=== PATIENT | female | born 1950 | race Caucasian/White ===

== ENCOUNTER 2018-10-04 12:09 | Day surgery (SDC) | payer OTHER ==
[~2018-10-04] VITALS: Ht 172.7 cm; Wt 64.4 kg
[~2018-10-04 12:09] MED LIST: ATENOLOL25 MG PO; FLUCELVAX60 MCG/0.4 IM; LIPITOR20 MG PO; LOTENSIN20 MG PO
--- NOTE | 2018-10-04 13:48 | NUR ---
10/04/18 1348 Hilda Mcmillan 1342- PT ARRIVES TO PACU. AROUSABLE TO VOICE. REPORTS NO PAIN OR NAUSEA. FALLS INSTANTLY BACK TO SLEEP. RESP EVEN AND UNLABORED. OXYGEN SAT HIGH 90'S TO 100% ON 3L VIA NC. 1344- OXYGEN TURNED OFF. OXYGEN SAT HIGH 90'S ON RA. 1346- PT ENCOURAGED TO TAKE DEEP BREATHS. PT IS ABLE TO PERFORM THIS TASK. OXYGEN SAT REMAINS IN THE HIGH 90'S ON RA.
--- NOTE | 2018-10-06 12:09 | OR ---
[facility] [address], [place] [address] Signed DATE OF OPERATION: 10/04/2018 SURGEON: Peg Oden MD PREOPERATIVE DIAGNOSIS: Colon screening. POSTOPERATIVE DIAGNOSIS: Cecal polyp (excised). PROCEDURE: Total colonoscopy to cecum with cold snare polypectomy x1. ANESTHESIA: Intravenous sedation with fentanyl 100 mcg, Versed 4 mg. INDICATION: This 68-year-old white woman is a patient Dr. Curtis Pierre, and underwent colonoscopy in 2007 by me, which was normal. She is symptom-free and has no family history of colon cancer. She is here for surveillance colonoscopy for screening, understands the risks of bleeding, infection, and perforation. FINDINGS: The prep was excellent. Complete colonoscopy was undertaken of the cecum without question. There was a small polyp of the cecum, which was easily identified and consistent with adenomatous polyp based on narrow band imaging. This was excised completely with cold snare polypectomy technique. The remaining colon was normal. DESCRIPTION OF PROCEDURE: The patient was brought to the endoscopy suite and placed in lateral decubitus position, given intravenous sedation to the point of slurred speech and nystagmus. Digital rectal examination was normal. An Olympus video colonoscope was passed into the rectum and manipulated throughout the colon ultimately intubating the cecum itself. The ileocecal valve and appendiceal orifice were normal. Scope was withdrawn and promptly noted was a small sessile polyp, approximately 6 to 8 mm in size. This was excised with cold snare polypectomy technique without problem. Specimen was passed for Pathology. The scope was further withdrawn from that point and examination throughout showed no sign of other abnormality. Retroflexed view of the rectum was normal. The scope was removed. The patient was Electronically Signed By: PEG ODEN MD 10/06/18 1209 PATIENT NAME: CAROLYN CHAHAL OPERATIVE REPORT DATE OF : 48 REPORT #: [id number] PHYSICIAN: PEG ODEN MD PCP: CURTIS PIERRE MD REPORT IS CONFIDENTIAL AND NOT TO BE RELEASED WITHOUT AUTHORIZATION [facility] [address] [place] [id number] Signed taken to recovery in good condition. CONCLUSION DIAGNOSIS: Polyp of cecum excised. PLAN: Recommend repeat colonoscopy in 5 years, sooner if clinically indicated or if the final pathology on the polyp is adverse. MD ROBERT Amaro/MODL /[id number] cc: Curtis Pierre MD Copies: CURTIS PIERRE MD ~ Electronically Signed By: PEG ODEN MD 10/06/18 1209 PATIENT NAME: CAROLYN CHAHAL OPERATIVE REPORT DATE OF : 48 REPORT #: [id number] PHYSICIAN: PEG ODEN MD PCP: CURTIS PIERRE MD REPORT IS CONFIDENTIAL AND NOT TO BE RELEASED WITHOUT AUTHORIZATION
== END 2018-10-04 14:35 | disposition home or self-care (01) ==
LOC: OPS 12:09 → DS 12:09 → OPS 13:00 → DS 13:00 → OPS 14:35
PROVIDERS: Surgery
PROC: 0DBH8ZZ Excision of Cecum, Via Natural or Artificial Opening Endoscopic (ICD-10-PCS; principal; 2018-10-04 13:00)
DX: Z12.11 Encounter for screening for malignant neoplasm of colon (principal); D12.0 Benign neoplasm of cecum; E78.5 Hyperlipidemia, unspecified; I10 Essential (primary) hypertension; Z87.891 Personal history of nicotine dependence
CPT/HCPCS: 99153; G0500; J2250; J3010; J7120